=== PATIENT | female | born 1985 | race African-American/Black ===

== ENCOUNTER 2020-09-23 17:18 | Emergency (ER) | payer MEDICAID ==
[~2020-09-23] VITALS: Ht 165.1 cm; Wt 60.8 kg
[2020-09-23 17:18] VITALS: BP_SYST 121
[2020-09-23] MEDS ORDERED: levETIRAcetam 500 MG TABLET PO ONE (17:30)
[2020-09-23] MEDS ORDERED: LORazepam 1 MG TABLET PO ONE (17:30)
[2020-09-23 18:26] LABS: BASOPHILS % (AUTO) 0.9 % (0.0-2.0); EOSINOPHILS # (AUTO) 0.1 K/uL (0.0-0.4); EOSINOPHILS % (AUTO) 1.9 % (0.0-4.0); HEMATOCRIT 33.7 % (36-48); HEMOGLOBIN 10.9 g/dL (12.0-16.0); LYMPHOCYTES # (AUTO) 1.3 K/uL (1.0-5.5); LYMPHOCYTES % (AUTO) 29.5 % (20.5-51.5); MEAN CORPUSCULAR HEMOGLOBIN 28 pg (27-31); MEAN CORPUSCULAR HGB CONC 32 % (32-36); MEAN CORPUSCULAR VOLUME 86 fL (79.0-98.0); MONOCYTES # (AUTO) 0.2 K/uL (0.0-1.0); MONOCYTES % (AUTO) 5.3 % (1.7-9.3); NEUTROPHILS # (AUTO) 2.7 K/uL (1.8-7.7); NEUTROPHILS % (AUTO) 62.4 % (40.0-70.0); PLATELET COUNT (AUTO) 199 K/uL (130-430); RED BLOOD CELL COUNT(AUTO) 3.93 MIL/uL (4.2-6.2); RED CELL DISTRIBUTION WIDTH 13.7 % (9.0-15.0); WHITE BLOOD COUNT (AUTO) 4.4 K/uL (4.8-10.8)
[2020-09-23 18:32] LABS: CREATININE 0.64 mg/dL (0.55-1.30); POTASSIUM 3.5 mmol/L (3.5-5.1)
[2020-09-23 18:37] LABS: ALBUMIN 4.1 g/dL (3.4-4.8); TOTAL BILIRUBIN 0.2 mg/dL (0.0-1.0)
[2020-09-23 19:02] VITALS: BP_SYST 121
== END 2020-09-23 19:02 | disposition home or self-care (01) ==
LOC: SED 17:18
DX: R56.9 Unspecified convulsions (principal)
CPT/HCPCS: 36415; 80053; 84703; 85025; 99283

== ENCOUNTER 2022-09-22 19:24 | Emergency (ER) | payer MEDICAID, OTHER ==
[~2022-09-22] VITALS: Ht 165.1 cm; Wt 60.3 kg
[2022-09-22 19:26] VITALS: BP_SYST 114
[2022-09-22] MEDS ORDERED: levETIRAcetam 500 MG TABLET PO ONE (19:30)
[2022-09-22] MEDS ORDERED: LORazepam 1 MG TABLET PO ONE (19:30)
[2022-09-22] MEDS ORDERED: LEVE500T9 PO ×2 (20:08→21:29)
[2022-09-22 20:55] LABS: BASOPHILS % (AUTO) 0.5 % (0.0-2.0); EOSINOPHILS # (AUTO) 0.1 K/uL (0.0-0.4); EOSINOPHILS % (AUTO) 1.6 % (0.0-4.0); HEMATOCRIT 35.2 % (36-48); HEMOGLOBIN 11.2 g/dL (12.0-16.0); LYMPHOCYTES # (AUTO) 1.3 K/uL (1.0-5.5); LYMPHOCYTES % (AUTO) 21.1 % (20.5-51.5); MEAN CORPUSCULAR HEMOGLOBIN 28 pg (27-31); MEAN CORPUSCULAR HGB CONC 32 % (32-36); MEAN CORPUSCULAR VOLUME 86 fL (79.0-98.0); MONOCYTES # (AUTO) 0.5 K/uL (0.0-1.0); MONOCYTES % (AUTO) 7.6 % (1.7-9.3); NEUTROPHILS # (AUTO) 4.3 K/uL (1.8-7.7); NEUTROPHILS % (AUTO) 69.2 % (40.0-70.0); RED BLOOD CELL COUNT(AUTO) 4.07 MIL/uL (4.2-6.2); RED CELL DISTRIBUTION WIDTH 13.8 % (9.0-15.0); WHITE BLOOD COUNT (AUTO) 6.3 K/uL (4.8-10.8)
[2022-09-22 21:04] LABS: CALCIUM 8.9 mg/dL (8.4-11.0); CREATININE 0.57 mg/dL (0.55-1.30)
[2022-09-22 21:06] LABS: PLATELET COUNT (AUTO) 113 K/uL (130-430)
[2022-09-22 21:09] LABS: ALBUMIN 3.5 g/dL (3.4-4.8); TOTAL BILIRUBIN 0.2 mg/dL (0.0-1.0)
--- NOTE | 2022-09-22 22:00 | NUR ---
Pt.endorsed from day RN. Seen by MD and awaiting dispostion. Awake on stretcher with seizure precautions intact. Urine sample obtained for HCG.
--- NOTE | 2022-09-22 22:46 | NUR ---
Patient given written and verbal discharge instructions and verbalizes understanding. ER MD discussed with patient the results and treatment provided. Patient in stable condition. ID arm band removed. IV catheter removed intact and dressing applied, no active bleeding. Rx of Keppra 500mg. BID given. Opportunity for questions provided and answered.
== END 2022-09-22 22:34 | disposition home or self-care (01) ==
LOC: SED 19:24
DX: R56.9 Unspecified convulsions (principal); Z79.899 Other long term (current) drug therapy
CPT/HCPCS: 36415; 80053; 81025; 85025; 99283

== ENCOUNTER 2023-11-10 01:50 | Emergency (ER) | payer MEDICAID, OTHER ==
[~2023-11-10] VITALS: Ht 165.1 cm; Wt 56.7 kg
[~2023-11-10 01:50] MED LIST: LEVE500T9 PO
[2023-11-10 01:55] VITALS: BP_SYST 98; PULSE 95; RESP 20; TEMP 98.4; O2SAT 100
[2023-11-10 03:26] VITALS: BP_SYST 98; PULSE 95; RESP 20; TEMP 98.4; O2SAT 100
== END 2023-11-10 03:28 | disposition home or self-care (01) ==
LOC: SED 01:50
DX: F41.9 Anxiety disorder, unspecified (principal); R06.02 Shortness of breath; Z79.899 Other long term (current) drug therapy
CPT/HCPCS: 99283